=== PATIENT | female | born 1945 | race Caucasian/White ===

== ENCOUNTER 2020-10-19 13:37 | Outpatient (CLI) | payer MEDICARE, SELFPAY | END 2020-10-19 13:38 | disposition home or self-care (01) | LOC: ANHCOVIDVC 13:37 | PROVIDERS: PCP Obstetrics & Gynecology | DX: Z23 Encounter for immunization (principal) | CPT/HCPCS: 0001A; 91300 ==

== ENCOUNTER 2020-11-09 13:30 | Outpatient (CLI) | payer MEDICARE, SELFPAY | END 2020-11-09 13:31 | disposition home or self-care (01) | LOC: ANHCOVIDVC 13:30 | PROVIDERS: PCP Obstetrics & Gynecology | DX: Z23 Encounter for immunization (principal) | CPT/HCPCS: 0002A; 91300 ==